=== PATIENT | female | born 2000 | race Hispanic/Latino ===

== ENCOUNTER 2018-09-13 04:55 | Emergency (ER) | payer OTHER ==
[2018-09-13] MEDS ORDERED: LIDOCAINE HCL-MPF 1% 2ML VIAL ONE (05:07)
== END 2018-09-13 05:43 | disposition home or self-care (01) ==
LOC: EDH 04:55
DX: T16.2XXA Foreign body in left ear, initial encounter (principal); X58.XXXA Exposure to other specified factors, initial encounter; Y93.89 Activity, other specified; Y92.89 Other specified places as the place of occurrence of the external cause; Y99.8 Other external cause status
CPT/HCPCS: 99282; J3490